=== PATIENT | female | born 1990 | race Caucasian/White ===

== ENCOUNTER 2017-05-11 03:29 | Inpatient (IN) | payer OTHER ==
[~2017-05-11] VITALS: Ht 162.6 cm; Wt 67.0 kg
[2017-05-11] VITALS (46 sets, daily range): BP systolic 93–124; BP diastolic 43–77; PULSE 69–113; RESP 16–18; TEMP 97.8–98.2
[~2017-05-11 03:29] MED LIST: NEXP68IM
[2017-05-11] MEDS ORDERED: LACTATED RINGER'S 1000 ML BOLUS IV PRN (04:30)
[2017-05-11] MEDS ORDERED: LIDOCAINE HCL 1% 50 ML VIAL INFIL PRN (04:30)
[2017-05-11] MEDS ORDERED: CITRIC ACID-SODIUM CITRATE LIQ 30 ML UDC PO SCH (04:30)
[2017-05-11] MEDS ORDERED: PENICILLIN G POT 5,000,000 UNITS/NS 100 ML(Mini-Bag Plus) IV ONE ×2 (04:30)
[2017-05-11] MEDS ORDERED: NS 1000 ML IV PRN (04:30)
[2017-05-11] MEDS ORDERED: OXYTOCIN 30 UNITS 500ML PREMIX IV ONE (04:30)
[2017-05-11] MEDS ORDERED: MINERAL OIL 10 ML VIAL TOPICAL PRN (04:30)
[2017-05-11] MEDS ORDERED: LIDOCAINE HCL 1% 50 ML VIAL I-DERMAL PRN (04:30)
[2017-05-11] MEDS ORDERED: OXYTOCIN 30 UNITS/NS 500ML PREMIX IV SCH (04:30)
[2017-05-11] MEDS ORDERED: ONDANSETRON HCL 4 MG/2 ML VIAL IV PUSH PRN (04:30)
[2017-05-11] MEDS ORDERED: NS 500 ML BOLUS IV PRN (04:30)
[2017-05-11] MEDS ORDERED: TUMS500C CHEW (04:35)
[2017-05-11] MEDS ORDERED: PREN1TAB63 PO (04:35)
[2017-05-11 04:46] LABS: AUTOMATED NEUTROPHIL # 8.5 TH/MM3 (1.8-7.7); BASOPHIL % 0.3 % (0.0-2.0); EOSINOPHIL # 0.1 TH/MM3 (0-0.4); EOSINOPHIL % 0.4 % (0.0-4.0); HEMATOCRIT 33.2 % (35.0-46.0); HEMO FLAGS DIFF FINAL; LYMPH % 21.7 % (9.0-44.0); LYMPHOCYTE # 2.6 TH/MM3 (1.0-4.8); MEAN CELL VOLUME 91.4 FL (80.0-100.0); MEAN CORPUSCULAR HEMOGLOBIN 31.9 PG (27.0-34.0); MEAN CORPUSCULAR HGB CONC 34.9 % (32.0-36.0); MONO % 7.8 % (0.0-8.0); NEUT % 69.8 % (16.0-70.0); PLATELET COUNT 215 TH/MM3 (150-450); RED BLOOD COUNT 3.64 MIL/MM3 (4.00-5.30); RED CELL DISTRIBUTION WIDTH 13.4 % (11.6-17.2); WHITE BLOOD COUNT 12.1 TH/MM3 (4.0-11.0)
[2017-05-11 04:49] LABS: BACTERIA, URINE FEW /hpf; BLOOD, URINE NEG (NEG); COMMENT (UR) CULT NOT INDICATED; CULTURE IF INDICATED CULT NOT INDICATED; GLUCOSE,URINE NEG (NEG); KETONE, URINE NEG (NEG); MUCUS URINE FEW /lpf (OCC); NITRITE,URINE NEG (NEG); PH, URINE 6.5 (5.0-8.5); SQUAMOUS EPITHELIAL CELL URINE 36 /hpf (0-5); URINE COLOR YELLOW (YELLW/STRAW)
[2017-05-11] MEDS: LACTATED RINGER'S 1000 ML IV SCH ×2 (06:17→12:18)
[2017-05-11] MEDS: PENICILLIN G POT 2,500,000 UNITS/NS 100 ML IV SCH ×4 (08:19→12:17)
[2017-05-11] MEDS ORDERED: fentaNYL 2MCG-BUPIV 0.125% INJ 100 ML ONE (11:00)
[2017-05-11] MEDS ORDERED: NO SYSTEM NARCOTICS PRN (12:15)
[2017-05-11] MEDS ORDERED: DO NOT ADMINISTER ANTICOAGULANTS PRN (12:15)
[2017-05-11] MEDS ORDERED: fentaNYL 2MCG-BUPIV 0.125% 100 ML EPIDURAL SCH (12:15)
[2017-05-11] MEDS ORDERED: ePHEDrine/NS 25 MG/5 ML SYR IV PUSH PRN (12:15)
[2017-05-11] MEDS ORDERED: OXYTOCIN 30 UNITS-500ML PREMIX 500 ML IV ONE (14:15)
[2017-05-11] MEDS ORDERED: IBUPROFEN 800 MG TAB PO PRN (14:15)
[2017-05-11] MEDS ORDERED: BENZOCAINE 20% TOPICAL SPRAY 60 ML CAN TOPICAL PRN (14:15)
[2017-05-11] MEDS ORDERED: ALUMINUM/MAGNESIUM/SIMETH 30 ML CUP PO PRN (14:15)
[2017-05-11] MEDS ORDERED: ONDANSETRON ODT 4 MG TAB PO PRN (14:15)
[2017-05-11] MEDS ORDERED: SODIUM CHLORIDE 0.9% FLUSH 10 ML FLUSH IV FLUSH PRN (14:15)
[2017-05-11] MEDS ORDERED: WITCH HAZEL 50%/GLYCERIN 12.5% 40 PAD JAR TOPICAL PRN (14:15)
[2017-05-11] MEDS ORDERED: DOCUSATE SODIUM 50 MG/SENNA 8.6 MG TAB PO PRN (14:15)
[2017-05-11] MEDS ORDERED: ACETAMINOPHEN 325 MG TAB PO PRN (14:15)
[2017-05-11] MEDS ORDERED: ZOLPIDEM TARTRATE 5 MG TAB PO PRN (14:15)
[2017-05-11] MEDS ORDERED: OXYTOCIN 30 UNITS-500ML PREMIX 500 ML IV SCH (14:15)
[2017-05-11] MEDS ORDERED: PERC5TAB12 PO (14:16)
--- NOTE | 2017-05-11 14:17 | HHI.DCPOC ---
Discharge Care Plan Diagnosis: (1) Vaginal delivery Report Symptoms to Your Doctor -Temperature above 100.5 degrees -Redness, of incision or excessive or foul smelling drainage -Unusual pain or calf pain -Increased vaginal bleeding -Painful or difficulty urinating -Feelings of extreme sadness or anxiety after 2 weeks Goals to Promote Your Health * To prevent worsening of your condition and complications * To maintain your health at the optimal level Directions to Meet Your Goals Take your medications as prescribed Follow your dietary instruction Follow activity as directed Ensure plenty of rest for recovery Drink fluids for hydration Keep your appointments as scheduled Take your immunizations and boosters as scheduled If your symptoms worsen call your PCP, if no PCP go to Urgent Care Center or Emergency Room Smoking is Dangerous to Your Health. Avoid second hand smoke Call the 24-hour crisis hotline for domestic abuse at Darryl Ralph MD May 11, 2017 14:17
[2017-05-11] MEDS ORDERED: OXYTOCIN 30 UNITS-500ML PREMIX 500 ML ONE (14:32)
--- NOTE | 2017-05-11 14:32 | PD.OB.DELI ---
Weeks gestation: 39 Medical induction of labor?: Yes Artificial rupture of membrane: Yes Anesthesia: Epidural Episiotomy: None Vaginal Delivery: Normal Presentation: Occiput anterior Nuchal Cord: x1 (unable to reduce nuchal cord during delivery, while attempting to deliver without reducing the cord, the cord ripped. The cord was immediately grasped and clamped manually until a curved hemostat was applied.) Delayed cord clamping (45 sec): No Infant: Female Delivery date: May 11, 2017 Delivery time: 13:55 One Minute : 9 Five Minute : 9 Weight: 3285g Placenta: Spontaneous delivery, Intact, 3 vessel cord Laceration: No lacerations Estimated blood loss: 250cc Additional Information Baby Health Program Analyst. Supervised by Daysi Mattson MD, R3 May 11, 2017 14:32
[2017-05-11] MEDS ORDERED: DIPHTH/TETANUS/ACEL PERTUSSIS (BOOSTER) 0.5 ML VIAL/PFS IM ONE (16:00)
[2017-05-11] MEDS ORDERED: MEASLES, MUMPS, RUBELLA VACCINE 0.5 ML VIAL SQ ONE (16:00)
[2017-05-11] MEDS: oxyCODONE/ACETAMINOPHEN 5 MG/325 MG TAB PO PRN ×2 (18:58→23:06)
[2017-05-11] MEDS ORDERED: SODIUM CHLORIDE 0.9% FLUSH 10 ML FLUSH IV FLUSH SCH (21:00)
[2017-05-11] MEDS: IBUPROFEN 800 MG TAB PO PRN (23:06)
[2017-05-12] MEDS: oxyCODONE/ACETAMINOPHEN 5 MG/325 MG TAB PO PRN ×3 (05:43→14:56)
[2017-05-12 08:00] VITALS: BP 92/61; PULSE 68; RESP 14; TEMP 97.6
[2017-05-12] MEDS ORDERED: PRENATAL VITAMIN CHEWABLE TAB PO SCH (09:00)
[2017-05-12] MEDS ORDERED: INFLUENZA VIRUS VACCINE (QUADRIVALENT) 0.5 ML SYR IM ONE (09:00)
--- NOTE | 2017-05-12 10:02 | HHI.OB ---
Subjective Post Day: 1 Remarks uncomplicated , multiparous pt, P4 now Objective Vitals/I&O Vital Signs Date Time Temp Pulse Resp B/P (MAP) Pulse Ox O2 Delivery O2 Flow Rate FiO2 05/12/17 08:00 97.6 68 14 05/12/17 08:00 92/61 (71) 05/11/17 15:49 77 101/60 (74) 05/11/17 15:17 89 117/51 (73) 05/11/17 15:00 91 116/54 (74) 05/11/17 14:45 98.2 05/11/17 14:45 16 05/11/17 14:45 78 101/53 (69) 05/11/17 14:31 105 117/62 (80) 05/11/17 14:15 80 112/62 (79) 05/11/17 14:00 87 106/52 (70) 05/11/17 13:30 78 109/60 (76) 05/11/17 13:00 83 112/73 (86) 05/11/17 12:45 88 107/68 (81) 05/11/17 12:31 113 108/43 (64) 05/11/17 12:30 98.2 18 05/11/17 12:25 103 124/71 (88) 05/11/17 12:20 80 105/73 (84) 05/11/17 12:20 75 05/11/17 12:19 16 05/11/17 12:15 82 05/11/17 12:15 70 111/63 (79) 05/11/17 12:10 75 93/58 (70) 05/11/17 12:10 82 05/11/17 12:05 70 05/11/17 12:05 74 102/58 (73) 05/11/17 12:00 75 112/52 (72) 05/11/17 12:00 72 05/11/17 11:55 73 05/11/17 11:55 83 105/57 (73) 05/11/17 11:50 71 05/11/17 11:50 78 102/57 (72) 05/11/17 11:46 82 98/56 (70) 05/11/17 11:45 79 05/11/17 11:44 82 108/55 (72) 05/11/17 11:40 80 05/11/17 11:40 73 111/60 (77) 05/11/17 11:36 84 105/58 (74) 05/11/17 11:35 87 05/11/17 11:33 82 116/65 (82) 05/11/17 11:30 80 109/66 (80) 05/11/17 11:30 79 05/11/17 11:28 90 114/69 (84) 05/11/17 11:25 85 05/11/17 11:25 93 118/58 (78) 05/11/17 11:20 94 05/11/17 10:52 18 05/11/17 10:52 69 107/59 (75) 05/11/17 10:51 97.8 05/11/17 10:16 71 106/65 (79) Objective Remarks GENERAL: Well-nourished, well-developed patient. CARDIOVASCULAR: Regular rate and rhythm without murmurs, gallops, or rubs. RESPIRATORY: Breath sounds equal bilaterally. No accessory muscle use. ABDOMEN/GI: Abdomen soft, non-tender. Fundus: Firm, non-tender at umbilicus. GENITOURINARY: Light bleeding. EXTREMITIES: No cyanosis or edema, non-tender, without signs of DVT. Medications and IVs Current Medications Medications (Trade) Dose Ordered Sig/Deyvi Route Start Time Stop Time Status Last Admin (NS Flush) 2 ml BID IV FLUSH 05/11/17 21:00 (NS Flush) 2 ml UNSCH PRN IV FLUSH 05/11/17 14:15 (Tylenol) 650 mg Q4H PRN PO 05/11/17 14:15 (Percocet 5-325 Mg) 1 tab Q4H PRN PO 05/11/17 14:15 (Americaine 20% Top Spr) 1 spray Q4H PRN TOPICAL 05/11/17 14:15 (Tucks Pads) 1 applic QID PRN TOPICAL 05/11/17 14:15 (Carley-Colace) 2 tab Q12H PRN PO 05/11/17 14:15 05/11/17 23:05 (Ambien) 5 mg HS PRN PO 05/11/17 14:15 (Mag-Al Plus Susp Liq) 15 ml Q8H PRN PO 05/11/17 14:15 (Zofran Odt) 4 mg Q6H PRN PO 05/11/17 14:15 Non-Formulary Medication 1 tab DAILY PO 05/12/17 09:00 UNV (Motrin) 800 mg Q8H PRN PO 05/11/17 19:00 05/11/17 23:06 (Percocet 5-325 Mg) 1 tab Q4H PRN PO 05/11/17 19:00 05/12/17 05:43 Assessment/Plan Problem List: (1) Vaginal delivery ICD Codes: O80 - Encounter for full-term uncomplicated delivery Status: Acute Assessment and Plan PPD#1 routine supportive care ok to d/c to home this afternoon once infant cleared office f/u in [address] Ralph Discharge Planning routine Kat Watts MD May 12, 2017 10:02
[2017-05-12] MEDS ORDERED: IBUP1TAB7 PO (10:03)
[2017-05-12] MEDS ORDERED: PERI PO (10:03)
[2017-05-12] MEDS: IBUPROFEN 800 MG TAB PO PRN (10:21)
== END 2017-05-12 17:54 | disposition home or self-care (01) | DRG 775 ==
LOC: H2EB 03:29 → H1EA 16:01
PROVIDERS: ADMIT Obstetrics & Gynecology; ATTEND Obstetrics & Gynecology
PROC: 10E0XZZ Delivery of Products of Conception, External Approach (ICD-10-PCS; principal; 2017-05-11)
DX: O69.81X0 Labor and delivery complicated by cord around neck, without compression, not applicable or unspecified (principal); Z23 Encounter for immunization
CPT/HCPCS: 59025; 80307; 81001; 85025; 85461; 86850; 86900; 86901; 90384; 90686; 90715; J2405; J2540; J2590; J2790; J7120; Q2038

== ENCOUNTER → 2017-06-27 | Day surgery (SDC) | payer OTHER ==
[~2017-06-27] MED LIST changes: +DEXAMETHASONE SOD PHOS 4 MG/ML VIAL IV; +DO NOT ADM ANY ANTICOAGULANT DRUGS; +GLYCOPYRROLATE 1 MG/5 ML SYRINGE IV PUSH; +KETOROLAC TROMETHAMINE 30 MG/ML (IVP) VIAL IV PUSH; +LIDOCAINE HCL 1% PF 5 ML SYRINGE OTHER; +METOPROLOL TARTRATE 25 MG TAB PO; +MIDAZOLAM HCL 2 MG/2 ML VIAL; +NEOSTIGMINE 5 MG/5 ML SYRINGE IV PUSH; -NEXP68IM; +ONDANSETRON HCL 4 MG/2 ML VIAL IV; +ONDANSETRON HCL 4 MG/2 ML VIAL IV PUSH; +PROPOFOL 200 MG/20 ML AMP IV; +ROCURONIUM INJ 50 MG/5 ML SYRINGE IV PUSH; +SODIUM CHLORID 0.9% 500 ML IV; +oxyCODONE/ACETAMINOPHEN 5 MG/325 MG TAB PO
[2017-06-27] MEDS: CHLORHEXIDINE GLUCONATE 2 % 1 PACK (2 CLOTHS) TOPICAL (07:00)
[2017-06-27] MEDS: POVIDONE IODINE 5% (ANTISEPSIS KIT) 4 APPLICATIONS EACH NARE (07:00)
[2017-06-27] MEDS: LACTATED RINGER'S 1000 ML IV (07:20)
[2017-06-27 07:36] LABS: AUTOMATED NEUTROPHIL # 4.5 TH/MM3 (1.8-7.7); BASOPHIL # 0.1 TH/MM3 (0-0.2); BASOPHIL % 0.7 % (0.0-2.0); EOSINOPHIL # 0.1 TH/MM3 (0-0.4); EOSINOPHIL % 0.9 % (0.0-4.0); HEMATOCRIT 37.6 % (35.0-46.0); HEMO FLAGS DIFF FINAL; HEMOGLOBIN 13.3 GM/DL (11.6-15.3); LYMPH % 26.9 % (9.0-44.0); LYMPHOCYTE # 1.8 TH/MM3 (1.0-4.8); MEAN CELL VOLUME 88.9 FL (80.0-100.0); MEAN CORPUSCULAR HEMOGLOBIN 31.4 PG (27.0-34.0); MEAN CORPUSCULAR HGB CONC 35.3 % (32.0-36.0); MEAN PLATELET VOLUME 8.3 FL (7.0-11.0); MONO % 5.7 % (0.0-8.0); MONOCYTE # 0.4 TH/MM3 (0-0.9); NEUT % 65.8 % (16.0-70.0); PLATELET COUNT 218 TH/MM3 (150-450); RED BLOOD COUNT 4.23 MIL/MM3 (4.00-5.30); RED CELL DISTRIBUTION WIDTH 12.6 % (11.6-17.2); WHITE BLOOD COUNT 6.8 TH/MM3 (4.0-11.0)
[2017-06-27] MEDS: APREPITANT 40 MG CAP (07:38)
[2017-06-27 07:55] LABS: BHCG SCREEN QUALITATIVE LESS THAN 1 MIU/ML (0-5)
[2017-06-27] MEDS: *morphine SULFATE 4 MG/ML PERIprocedure ONLY (09:30)
== END | disposition home or self-care (01) ==
LOC: HSDC 06:46
DX: Z30.2 Encounter for sterilization (principal); N83.8 Other noninflammatory disorders of ovary, fallopian tube and broad ligament; F41.9 Anxiety disorder, unspecified; J45.909 Unspecified asthma, uncomplicated
CPT/HCPCS: 00840; 84703; 85025; 88302; 88302-59

== ENCOUNTER 2017-08-30 21:32 | Emergency (ER) | payer OTHER ==
[~2017-08-30] VITALS: Ht 165.1 cm; Wt 56.9 kg
[~2017-08-30 21:32] MED LIST changes: -DEXAMETHASONE SOD PHOS 4 MG/ML VIAL IV; -DO NOT ADM ANY ANTICOAGULANT DRUGS; -GLYCOPYRROLATE 1 MG/5 ML SYRINGE IV PUSH; +IBUP1TAB7 PO; -KETOROLAC TROMETHAMINE 30 MG/ML (IVP) VIAL IV PUSH; -LIDOCAINE HCL 1% PF 5 ML SYRINGE OTHER; -METOPROLOL TARTRATE 25 MG TAB PO; -MIDAZOLAM HCL 2 MG/2 ML VIAL; -NEOSTIGMINE 5 MG/5 ML SYRINGE IV PUSH; -ONDANSETRON HCL 4 MG/2 ML VIAL IV; -ONDANSETRON HCL 4 MG/2 ML VIAL IV PUSH; +PREN1TAB63 PO; -PROPOFOL 200 MG/20 ML AMP IV; -ROCURONIUM INJ 50 MG/5 ML SYRINGE IV PUSH; -SODIUM CHLORID 0.9% 500 ML IV; +TYLE325T PO; -oxyCODONE/ACETAMINOPHEN 5 MG/325 MG TAB PO
[2017-08-30 21:39] VITALS: BP 110/55; PULSE 83; RESP 18; TEMP 98.1; O2SAT 97
[2017-08-30 23:00] VITALS: PULSE 102; RESP 16; TEMP 97.7; O2SAT 99
[2017-08-30] MEDS ORDERED: ZITHTAB PO (23:30)
--- NOTE | 2017-08-30 23:30 | PD ---
HPI Chief Complaint: ENT Complaint Time Seen by Provider: 23:26 Travel History International Travel<30 days: No Contact w/Intl Traveler<30days: No Traveled to known affect area: No History of Present Illness HPI 27-year-old female complains of cough and congestion sore throat. Mom states his symptoms started about 2 weeks ago and got better and get worse again. Patient denies any vomiting or diarrhea. Patient denies any dysuria or frequency. Patient denies any fever chills. Patient denies any chance of being . PFSH Past Medical History Cancer: No Cardiovascular Problems: No Diabetes: No Diminished Hearing: No Endocrine: No Genitourinary: No Hepatitis: No Hiatal Hernia: No Immune Disorder: No Musculoskeletal: No Neurologic: No Psychiatric: No Reproductive: No Respiratory: Yes (ASTHMA) Immunizations Current: No Thyroid Disease: No ?: Not Menopausal: No Past Surgical History AICD: No Body Medical Devices: BREAST IMPLANTS Joint Replacement: No Pacemaker: No Other Surgery: Yes (BREAST AUG) Social History Alcohol Use: Yes (OCC) Tobacco Use: Yes (2 PPD) Substance Use: No Allergies-Medications (Allergen,Severity, Reaction): Coded Allergies: No Known Allergies (Verified Allergy, Unknown, 06/27/17) Reported Meds & Prescriptions Reported Meds & Active Scripts Active Ibuprofen 800 Mg Tab 800 Mg PO Q8H PRN Reported Tylenol (Acetaminophen) 325 Mg Tab 325 Mg PO Q6H PRN Vitamins 0.8 mg ( Multivit-Min W/Fe-FA) 1 Tab Tab 1 Tab PO DAILY Review of Systems General / Constitutional: No: Fever Eyes: No: Visual changes HENT: Positive: Sore Throat, No: Headaches Cardiovascular: No: Chest Pain or Discomfort Respiratory: Positive: Cough, No: Shortness of Breath Gastrointestinal: No: Abdominal Pain Genitourinary: No: Dysuria Musculoskeletal: No: Pain Skin: No Rash Neurologic: No: Weakness Psychiatric: No: Depression Endocrine: No: Polydipsia Hematologic/Lymphatic: No: Easy Bruising Physical Exam Narrative GENERAL: Well-nourished, well-developed patient. SKIN: Focused skin assessment warm/dry. HEAD: Normocephalic. EYES: No scleral icterus. No injection or drainage. TM: Clear. Throat: Nonerythematous. NECK: Supple, trachea midline. No JVD or lymphadenopathy. CARDIOVASCULAR: Regular rate and rhythm without murmurs, gallops, or rubs. RESPIRATORY: Breath sounds equal bilaterally. No accessory muscle use. GASTROINTESTINAL: Abdomen soft, non-tender, nondistended. MUSCULOSKELETAL: No cyanosis, or edema. BACK: Nontender without obvious deformity. No CVA tenderness. Data Data Last Documented VS Vital Signs Date Time Temp Pulse Resp B/P (MAP) Pulse Ox O2 Delivery O2 Flow Rate FiO2 08/30/17 23:00 20 08/30/17 23:00 97.7 102 99 08/30/17 21:39 110/55 (73) MDM Medical Decision Making Medical Screen Exam Complete: Yes Emergency Medical Condition: Yes Differential Diagnosis Differential diagnosis including otitis media, pharyngitis, bronchitis, pneumonia, viral syndrome. Narrative Course 27-year-old female with sore throat, coughing. Diagnosis Primary Impression: Bronchitis Patient Instructions: General Instructions Additional Instructions: Tylenol for fever. Z-Shashi as directed. Anvp-ray-oerbkka cough medication as needed. Follow-up with personal physician. Return if worse. Med/Other Pt SpecificInfo: Prescription(s) given Scripts Azithromycin (Zithromax Z-Shashi) 250 Mg Dspk 250 MG PO DIRECTED for Infection, #1 DSPK 0 Refills 500 MG (2 tabs) day 1, then 1 tab days 2-5. Prov: Chay Clay MD 08/30/17 Disposition: 01 DISCHARGE HOME Condition: Stable Chay Clay MD Aug 30, 2017 23:30
[2017-08-30 23:49] VITALS: BP 112/70
== END 2017-08-30 23:50 | disposition home or self-care (01) ==
LOC: PHED 21:32
DX: J40 Bronchitis, not specified as acute or chronic (principal); F17.200 Nicotine dependence, unspecified, uncomplicated
CPT/HCPCS: 99283